=== PATIENT | female | born 1965 | race Two or more races ===

== ENCOUNTER → 2025-05-07 | Emergency (ER) | payer OTHER ==
[~2025-05-07] VITALS: Ht 165.1 cm; Wt 153.8 kg
[~2025-05-07] MED LIST: BACTRIM DS TAB1 EACH PO; BENADRYL25 MG PO; DOLOGESIC 500-1 EACH PO; IRON325 MG PO; LOTRISONE CREAM45 GM TOP; ZYRTEC10 M3 PO
== END | disposition left against medical advice (07) ==
LOC: ER 21:55
DX: Z53.21 Procedure and treatment not carried out due to patient leaving prior to being seen by health care provider (principal)